=== PATIENT | female | born 1980 | race Two or more races ===

== ENCOUNTER 2021-04-14 10:19 | Day surgery (SDC) | payer OTHER, SELFPAY ==
[~2021-04-14] VITALS: Ht 154.9 cm; Wt 60.3 kg
--- NOTE | 2021-04-14 10:56 | NUR ---
GROCERY CLERK STOCKING: PT TO ROOM FROM [facility] GIMEEN[facility]. PT ABLE TO PROVIDE URINE SPECIMAN.
--- NOTE | 2021-04-14 11:29 | NUR ---
First contact with pt. Pt reports constant LLQ abd pain radiating to her back x8 days. Pt reports pain 10/10 currently. Pt denies N/V/D/dysuria. Pt able to change herself into hospital gown and position herself for comfort in bed. Continuous oxygen and BP Monitors applied, all safety measures observed.
[2021-04-14] MEDS ORDERED: MORPHINE SULFATE 4 MG/ML, 1ML IVPush PRN ×2 (11:30→15:30)
[2021-04-14] MEDS ORDERED: SODIUM CHLORIDE FLUSH 10ML SYR IVF ONE (11:30)
[2021-04-14] MEDS ORDERED: SODIUM CHLORIDE 0.9% 1,000ML IV ONE (11:30)
--- NOTE | 2021-04-14 11:39 | NUR ---
Pt in CT at this time.
[2021-04-14 11:48] LABS: BASOPHILS % (AUTO) 1 % (0-1); EOSINOPHILS % (AUTO) 4 % (1-7); LYMPHOCYTES % (AUTO) 32 % (22-44); MEAN CORPUSCULAR HEMOGLOBIN 26.6 pg (27.0-34.8); MEAN CORPUSCULAR HGB CONC 32.5 g/dL (32.4-35.8); MEAN PLATELET VOLUME 8.1 fL (7.4-10.4); MONOCYTES % (AUTO) 7 % (2-9); NEUTROPHILS % (AUTO) 57 % (42-75); PLATELET COUNT 304 x10^3/uL (130-400); RED CELL DISTRIBUTION WIDTH 17.1 % (9.6-15.2)
[2021-04-14 12:02] LABS: ALBUMIN 3.4 g/dL (3.4-5.0); ANION GAP 5 mmol/L (5-15); CALCIUM 8.9 mg/dL (8.5-10.1); CHLORIDE 108 mmol/L (98-107)
[2021-04-14 12:06] LABS: CREATININE 0.66 mg/dL (0.55-1.02)
[2021-04-14] MEDS ORDERED: MORPHINE SULFATE 4 MG/ML, 1ML ONE (12:17)
[2021-04-14 12:58] LABS: MICROSCOPIC NOT IND
[2021-04-14 13:03] LABS: ALANINE AMINOTRANSFERASE 18 U/L (12-78)
[2021-04-14 13:04] LABS: ALKALINE PHOSPHATASE 71 U/L (45-117); BILIRUBIN,TOTAL 0.5 mg/dL (0.2-1.0); TOTAL PROTEIN 7.3 g/dL (6.4-8.2)
--- NOTE | 2021-04-14 14:03 | NUR ---
PT RESTING IN [place] WITH NADN AND CALL LIGHT WITHIN REACH OF PT.
[2021-04-14] MEDS ORDERED: OMNIPAQUE 350 MG/ML, 100ML BOTTLE ONE (14:31)
[2021-04-14] MEDS ORDERED: ONDANSETRON 2MG/ML, 2ML IVPush PRN (15:30)
[2021-04-14] MEDS ORDERED: POTASSIUM CHLORIDE 20 MEQ in D5%-0.45% NACL 1,000 ML IV ONE (15:30)
[2021-04-14] MEDS ORDERED: PIPERACILLIN/TAZO 3.375 GM in DEXTROSE 5% 50 ML IVPB SCH (15:30)
[2021-04-14] MEDS ORDERED: PIPERACILLIN/TAZO 3.375 GM in DEXTROSE 5% 50 ML IVPB ONE (16:00)
--- NOTE | 2021-04-14 16:18 | NUR ---
PT RESTING COMFORTABLY IN GURNEY WITH NADN AND CALL LIGHT WITHIN REACH. PT VSS AND UPDATED IN EMR. PT VERBALIZES UNDERSTANDING OF NEED FOR ADMISSION TO HOSPITAL. ALL QUESTIONS ANSWERED AT THIS TIME.
[2021-04-14 17:50] VITALS: BP 119/77
[2021-04-14 17:57] VITALS: BP 119/77
[2021-04-14] MEDS ORDERED: BUPIVACAINE/PF 0.5% ONE (18:41)
[2021-04-14] MEDS ORDERED: MIDAZOLAM 1 MG/ML, 2ML ONE (18:46)
[2021-04-14] MEDS ORDERED: FENTANYL PF 100 MCG/2ML ONE (18:46)
[2021-04-14] MEDS ORDERED: SUGAMMADEX 200 MG/2 ML IVPush ONE (19:25)
[2021-04-14] MEDS ORDERED: OXYcodone 5 MG/5 ML ORAL.SOL UDC PO PRN (19:30)
[2021-04-14] MEDS ORDERED: ACETAMINOPHEN 325 MG TABLET PO PRN (19:30)
[2021-04-14] MEDS ORDERED: FENTANYL PF 100 MCG/2ML IV PRN (19:30)
[2021-04-14] MEDS ORDERED: HYDROmorphone 2 MG/ML, 1ML IVPush PRN (19:30)
[2021-04-14] MEDS ORDERED: ALBUTEROL SULFATE 2.5 MG/3 ML NPPB PRN (19:30)
[2021-04-14] MEDS ORDERED: LABETALOL 5MG/ML, 20ML IV PRN (19:30)
[2021-04-14] MEDS ORDERED: hydrALAzine 20 MG/ML, 1ML IV PRN (19:30)
[2021-04-14] MEDS ORDERED: KETOROLAC 30 MG/1 ML IV PRN (19:30)
[2021-04-14] MEDS ORDERED: PROMETHAZINE 25 MG/ML, 1ML IV PRN (19:30)
[2021-04-14] MEDS ORDERED: DIAZEPAM 5 MG/ML, 2ML IVPush PRN (19:30)
[2021-04-14] MEDS ORDERED: MEPERIDINE/PF 25MG/0.5ML IVPush PRN (19:30)
[2021-04-14] MEDS ORDERED: ONDANSETRON 2MG/ML, 2ML ONE ×2 (19:51→20:03)
[2021-04-14] MEDS ORDERED: CEFAZOLIN 1,000 MG ONE (19:51)
[2021-04-14] MEDS ORDERED: DEXAMETHASONE 4 MG/ML, 1ML ONE (19:51)
[2021-04-14] MEDS ORDERED: PROPOFOL 10 MG/ML, 20ML ONE (19:51)
[2021-04-14] MEDS ORDERED: ROCURONIUM 10MG/ML,5ML ONE (19:51)
[2021-04-14] MEDS ORDERED: OXYC1TAB14 PO (19:54)
[2021-04-14] MEDS ORDERED: MEPERIDINE/PF 25MG/ML,1ML ONE (20:07)
[2021-04-14] MEDS ORDERED: KETOROLAC 30 MG/1 ML ONE (20:33)
[2021-04-14] MEDS ORDERED: ACETAMINOPHEN 650 MG/20.3 ML UDC ONE (20:34)
[2021-04-14] MEDS ORDERED: ACETAMINOPHEN 325 MG TABLET ONE (21:30)
== END 2021-04-14 22:04 | disposition home or self-care (01) ==
LOC: EDSTATUS 13:38 → ED 13:39 → OUT 15:09 → UNDOADMIN 15:09 → EDIP 15:09 → 3N 16:58 → EDIP 16:58 → 3N 20:02 → 4NE 20:02 → 3N 21:39 → UNDODISIN 22:04 → OUT 22:04
PROVIDERS: ATTEND Emergency Medicine
DX: K35.30 Acute appendicitis with localized peritonitis, without perforation or gangrene (principal); Z20.822 Contact with and (suspected) exposure to COVID-19; Z79.899 Other long term (current) drug therapy
CPT/HCPCS: 36415; 44970; 74176; 74177; 76700; 80053; 81003; 83690; 84703; 85025; 87635; 88304; 96361; 96374; 99285; J0690; J1100; J1885; J2175; J2250; J2270; J2405; J2543; J2704; J3010; J3480; J7030; Q9967; G0378